=== PATIENT | female | born 1945 | race Caucasian/White ===

== ENCOUNTER 2017-06-08 12:41 | Emergency (ER) | payer OTHER ==
[~2017-06-08] VITALS: Ht 154.9 cm; Wt 58.7 kg
[~2017-06-08 12:41] MED LIST: ATOR20TA42 PO; BENA25TA8 PO; BIOT5000 PO; CALC625 PO; CARD240C6 PO; EDOX1TAB5 PO; FLEC100 PO; NIAC500T5 PO; PRED10 PO; RANI150T PO; SUPETAB; VITA-13 PO
[2017-06-08 12:47] VITALS: BP 158/71; PULSE 50; RESP 16; TEMP 98.7; O2SAT 96
[2017-06-08] MEDS ORDERED: LIPI20TA PO (12:59)
[2017-06-08] MEDS ORDERED: DILT0.05 PO (12:59)
[2017-06-08] MEDS ORDERED: FLEC100T PO (12:59)
[2017-06-08] MEDS ORDERED: XARE20TA PO (12:59)
[2017-06-08] MEDS ORDERED: AUGM875T3 PO (13:25)
--- NOTE | 2017-06-08 13:25 | PD ---
HPI Chief Complaint: Skin Problem Time Seen by Provider: 12:58 Travel History International Travel<30 days: No Contact w/Intl Traveler<30days: No Traveled to known affect area: No History of Present Illness HPI 72-year-old female presents to the emergency room for evaluation of cervical and submental lymphadenopathy. Patient states it first started 5 days ago. States it is sore and causes pain when she chews or puts pressure around the area. Denies history of the same. She denies any fever, chills, nausea, vomiting, sore throat, congestion, cough, or any other upper respiratory symptoms. She has an appointment with her ear, nose, throat doctor on June 24. She is only on Lipitor, diltiazem, flecainide, and Xarelto. PFSH Past Medical History Arthritis: Yes Atrial Fibrillation: Yes Blood Disorders: No Anxiety: No Depression: No Heart Rhythm Problems: Yes (SVT ) Cancer: No Cardiac Catheterization: Yes (x 12 PER PT) Cardiovascular Problems: Yes High Cholesterol: Yes Chest Pain: Yes Diabetes: No Diminished Hearing: No Endocrine: No Gastrointestinal Disorders: Yes (ULCER) GERD: Yes Glaucoma: No Genitourinary: No Hepatitis: No Hiatal Hernia: No Hypertension: No Immune Disorder: No Implanted Vascular Access Dvce: No Kidney Stones: No Medical other: Yes (SLEEP APNEA) Musculoskeletal: Yes Neurologic: Yes Psychiatric: No Reproductive: No Respiratory: No Immunizations Current: Yes Migraines: Yes Sleep Apnea: Yes Thyroid Disease: No Ulcer: Yes Tetanus Vaccination: > 5 Years Influenza Vaccination: Yes PNEUMOCCOCAL Vaccine (Year): 2 Menopausal: Yes Tubal Ligation: Yes Past Surgical History Gynecologic Surgery: Yes (TUBAL LIGATION) Other Surgery: Yes (LEFT GROIN SX FOR BLOOD VESSAL BLEEDING) Social History Alcohol Use: No Tobacco Use: No Substance Use: No Allergies-Medications (Allergen,Severity, Reaction): Coded Allergies: lactose (Unverified Allergy, Severe, 06/08/17) rofecoxib (Unverified Allergy, Severe, 06/08/17) simvastatin (Unverified Allergy, Severe, 06/08/17) warfarin (Unverified Allergy, Severe, Rash, 06/08/17) apixaban (Unverified Allergy, Intermediate, Rash, 06/08/17) rivaroxaban (Unverified Allergy, Intermediate, Rash, 06/08/17) diatrizoate meglumine (Unverified Allergy, Unknown, 06/08/17) gadobenic acid (Unverified Allergy, Unknown, 06/08/17) gadodiamide (Unverified Allergy, Unknown, 06/08/17) gadoteridol (Unverified Allergy, Unknown, 06/08/17) iodixanol (Unverified Allergy, Unknown, 06/08/17) iohexol (Unverified Allergy, Unknown, 06/08/17) Reported Meds & Prescriptions Reported Meds & Active Scripts Active Reported Flecainide (Flecainide Acetate) 100 Mg Tab 100 Mg PO BID Diltiazem ER 24 HR 180 Mg Jaya 180 Mg PO DAILY Lipitor (Atorvastatin Calcium) 20 Mg Tab 20 Mg PO HS Xarelto (Rivaroxaban) 20 Mg Tab 20 Mg PO DAILY Review of Systems Except as stated in HPI: all other systems reviewed are Neg Physical Exam Narrative GENERAL: Well-nourished, well-developed female in no acute distress. Afebrile. Ambulatory. SKIN: Focused skin assessment warm/dry. HEAD: Normocephalic. EYES: No scleral icterus. No injection or drainage. ENT: Mucosa pink and moist. No erythema or exudates. No uvular edema. No uvular , palatal, or tonsillar deviation. Airway patent. Nasal turbinates appear normal without nasal blood, purulent drainage or septal hematoma. NECK: Supple, trachea midline. No JVD. Bilateral submental lymphadenopathy. Lymph nodes measure about 2 cm in diameter. They are firm, slightly mobile, extremely tender to palpation. No erythema or increased warmth. She also has right-sided, 1 cm, mobile, tender anterior cervical lymphadenopathy. CARDIOVASCULAR: Regular rate and rhythm without murmurs, gallops, or rubs. RESPIRATORY: Breath sounds equal bilaterally. No accessory muscle use. No crackles, rales, wheezes, or rhonchi. Data Data Last Documented VS Vital Signs Date Time Temp Pulse Resp B/P (MAP) Pulse Ox O2 Delivery O2 Flow Rate FiO2 06/08/17 12:47 98.7 50 16 158/71 (100) 96 MDM Medical Decision Making Medical Screen Exam Complete: Yes Emergency Medical Condition: Yes Medical Record Reviewed: Yes Differential Diagnosis Lymphadenopathy, lymphoma, salivary stones Narrative Course 72-year-old female presents to the emergency room for evaluation of tender, bilateral lymphadenopathy that started 5 days ago. Physical exam reveals bilateral submental lymphadenopathy. Lymph nodes measure about 2 cm in diameter. They are firm, slightly mobile, extremely tender to palpation. No erythema or increased warmth. She also has right-sided, 1 cm, mobile, tender anterior cervical lymphadenopathy. Vital signs stable. Patient is very well- appearing. She has no systemic signs of infection. Denies any associated symptoms. She will be given a short course of Augmentin. She has an appointment with an ENT in 2 weeks. She was told to follow-up as planned for possible outpatient biopsy if symptoms do not improve with Augmentin. Told to return for worsening symptoms. She understands and agrees to plan. Diagnosis Primary Impression: Lymphadenopathy of head and neck Referrals: Ear / Nose / Throat Specialist Additional Instructions: Rest and drink plenty of fluids. Augmentin as directed, until gone. Apply ice to the affected area for 20 minutes at a time, as needed for pain and swelling. Follow-up with ENT as planned. They may want to perform a biopsy. Return to the emergency room for worsening symptoms. Med/Other Pt SpecificInfo: Prescription(s) given Disposition: 01 DISCHARGE HOME Condition: Stable Natalee Chung Jun 08, 2017 13:25
== END 2017-06-08 13:38 | disposition home or self-care (01) ==
LOC: PHEFT 12:41
DX: R59.0 Localized enlarged lymph nodes (principal); I48.91 Unspecified atrial fibrillation; E78.00 Pure hypercholesterolemia, unspecified; K21.9 Gastro-esophageal reflux disease without esophagitis; Z88.8 Allergy status to other drugs, medicaments and biological substances; Z79.899 Other long term (current) drug therapy; Z79.01 Long term (current) use of anticoagulants
CPT/HCPCS: 99283